=== PATIENT | male | born 1995 | race Caucasian/White ===

== ENCOUNTER 2020-03-09 10:24 | Emergency (ER) | payer SELFPAY ==
[~2020-03-09] VITALS: Ht 180.3 cm; Wt 83.9 kg
[2020-03-09] MEDS ORDERED: POLYMYXIN B RIGHTEYE (11:21)
[2020-03-09] MEDS ORDERED: TRIMETHOPRIM RIGHTEYE (11:21)
== END 2020-03-09 11:25 | disposition home or self-care (01) ==
LOC: ER 10:24
DX: S05.01XA Injury of conjunctiva and corneal abrasion without foreign body, right eye, initial encounter (principal); X58.XXXA Exposure to other specified factors, initial encounter; Y92.89 Other specified places as the place of occurrence of the external cause; Y99.0 Civilian activity done for income or pay
CPT/HCPCS: 99283; A9270